=== PATIENT | male | born 1955 | race Caucasian/White ===

== ENCOUNTER 2016-08-08 12:18 | Day surgery (SDC) | payer OTHER ==
[~2016-08-08] VITALS: Ht 185.4 cm; Wt 77.1 kg
[~2016-08-08 12:18] MED LIST: ANTIVERT25 MG PO; AUGMENTIN875 MG PO; CLEOCIN300 MG PO; HYDROCODON-ACE1 EAC7 PO; IBUPROFEN800 MG PO; LO-DOSE ASPIRIN81 M2 PO; NAPROSYN500 MG PO; NO HOME MEDS; NORCO 7.5/321 TABLET PO; OXAYDO5 MG PO; PAIN RELIEF EX500 MG PO; PLAVIX75 MG PO; SEROQUEL100 MG PO; SEROQUEL50 MG PO; TOBRADEX EYE DRO5 ML LEFT EYE; VENTOLIN HFA18 GM IH
== END 2016-08-08 14:08 | disposition home or self-care (01) ==
LOC: PAIN 12:18 → SDC 13:00 → PAIN 13:00
DX: M54.16 Radiculopathy, lumbar region (principal); M47.16 Other spondylosis with myelopathy, lumbar region; F41.1 Generalized anxiety disorder; J44.9 Chronic obstructive pulmonary disease, unspecified; E11.65 Type 2 diabetes mellitus with hyperglycemia; M51.06 Intervertebral disc disorders with myelopathy, lumbar region; I73.9 Peripheral vascular disease, unspecified; E78.5 Hyperlipidemia, unspecified; R42 Dizziness and giddiness; I45.10 Unspecified right bundle-branch block; F17.200 Nicotine dependence, unspecified, uncomplicated; I83.93 Asymptomatic varicose veins of bilateral lower extremities
CPT/HCPCS: J1100; J2250; J3010

== ENCOUNTER 2017-02-20 07:36 | Day surgery (SDC) | payer OTHER ==
[~2017-02-20] VITALS: Ht 185.4 cm; Wt 77.1 kg
[2017-02-20] MEDS ORDERED: GABAPENTIN600 MG PO (08:07)
== END 2017-02-20 09:17 | disposition home or self-care (01) ==
LOC: PAIN 07:36 → SDC 08:15 → PAIN 08:15
DX: M47.26 Other spondylosis with radiculopathy, lumbar region (principal); M47.16 Other spondylosis with myelopathy, lumbar region; M51.16 Intervertebral disc disorders with radiculopathy, lumbar region; J44.9 Chronic obstructive pulmonary disease, unspecified; E78.6 Lipoprotein deficiency; I73.9 Peripheral vascular disease, unspecified; E11.621 Type 2 diabetes mellitus with foot ulcer; L97.519 Non-pressure chronic ulcer of other part of right foot with unspecified severity; F17.210 Nicotine dependence, cigarettes, uncomplicated
CPT/HCPCS: J1030; J2250; J3010; S0020

== ENCOUNTER 2017-02-27 07:21 | Day surgery (SDC) | payer OTHER ==
[~2017-02-27] VITALS: Ht 185.4 cm; Wt 77.1 kg
[~2017-02-27 07:21] MED LIST changes: +GABAPENTIN600 MG PO
== END 2017-02-27 09:06 | disposition home or self-care (01) ==
LOC: PAIN 07:21 → SDC 08:00 → PAIN 08:00
DX: M47.26 Other spondylosis with radiculopathy, lumbar region (principal); I73.9 Peripheral vascular disease, unspecified; E11.621 Type 2 diabetes mellitus with foot ulcer; L97.519 Non-pressure chronic ulcer of other part of right foot with unspecified severity; E11.65 Type 2 diabetes mellitus with hyperglycemia; F17.200 Nicotine dependence, unspecified, uncomplicated; J44.9 Chronic obstructive pulmonary disease, unspecified; E78.1 Pure hyperglyceridemia; I45.10 Unspecified right bundle-branch block; F41.9 Anxiety disorder, unspecified; Z79.899 Other long term (current) drug therapy
CPT/HCPCS: J1030; J2250; J3010; S0020

== ENCOUNTER → 2017-05-03 | Outpatient (CLI) | payer MEDICARE | END | disposition home or self-care (01) | LOC: CDC 08:49 | DX: Z01.810 Encounter for preprocedural cardiovascular examination (principal); I45.10 Unspecified right bundle-branch block; I44.4 Left anterior fascicular block | CPT/HCPCS: 93000 ==